=== PATIENT | female | born 1955 | race African-American/Black ===

== ENCOUNTER 2024-11-26 21:01 | Emergency (ER) | payer MEDICARE, MEDICAID ==
[~2024-11-26] VITALS: Ht 152.4 cm; Wt 68.0 kg
[2024-11-26 21:06] VITALS: O2SAT 98
[2024-11-26] MEDS: LIDOCAINE 5% PATCH TOP SCH (23:09)
[2024-11-26] MEDS: ACETAMINOPHEN 500MG TABLET PO ONE (23:09)
[2024-11-26] MEDS ORDERED: LIDO-53 TP (23:49)
[2024-11-26] MEDS ORDERED: NAPR-1176 MT (23:49)
[2024-11-27 00:03] VITALS: BP 146/76; PULSE 96; RESP 16; TEMP 37.2; O2SAT 96
== END 2024-11-27 00:05 | disposition home or self-care (01) ==
LOC: ER 21:01
DX: S20.219A Contusion of unspecified front wall of thorax, initial encounter (principal); N64.4 Mastodynia; Z79.899 Other long term (current) drug therapy; Z79.1 Long term (current) use of non-steroidal anti-inflammatories (NSAID); W10.9XXA Fall (on) (from) unspecified stairs and steps, initial encounter; Y93.89 Activity, other specified; Y92.89 Other specified places as the place of occurrence of the external cause; Y99.8 Other external cause status
CPT/HCPCS: 71045; 73030; 99284